=== PATIENT | male | born 1965 | race Caucasian/White ===

== ENCOUNTER 2019-10-23 10:50 | Day surgery (SDC) | payer OTHER ==
[2019-10-13 08:32] VITALS: BMI 23.7
[~2019-10-23 10:50] MED LIST: DEXAMETHASONE SOD PHOSPHATE 10 MG/ML 1 ML VIAL IV ONE; HEPARIN SODIUM,PORCINE 5,000 UNIT/ML 1 ML VIAL SQ ONE; LACTATED RINGERS 1,000 ML IV SCH; LIDOCAINE 1% 20 ML VIAL (10MG/ML) FOR IV START INTRADERMA PRN; METOCLOPRAMIDE 5 MG/ML 2 ML VIAL IVP PRN; ONDANSETRON 4 MG/2 ML VIAL IVP ONE
[2019-10-23 11:11] VITALS: RESP 16
[2019-10-23] MEDS ORDERED: KETOROLAC 30 MG/ML 1 ML VIAL IVP SCH (12:00)
[2019-10-23] MEDS ORDERED: BUPIVACAINE (PF) 0.25% 30 ML VIAL SQ ONE ×2 (12:18→14:30)
[2019-10-23] MEDS ORDERED: MIDAZOLAM 2 MG/2 ML VIAL ONE (13:46)
[2019-10-23] MEDS ORDERED: fentaNYL (PF) 50 MCG/ML 2 ML AMP ONE (13:46)
[2019-10-23] MEDS ORDERED: KETOROLAC 30 MG/ML 1 ML VIAL ONE (13:46)
[2019-10-23] MEDS ORDERED: ROCURONIUM BROMIDE 10 MG/ML 10 ML VIAL IV ONE (13:46)
[2019-10-23] MEDS ORDERED: LIDOCAINE 1% INJ 10MG/ML (20 ML MDV) ONE (13:46)
[2019-10-23] MEDS ORDERED: PROPOFOL 10 MG/ML 20 ML VIAL IV ONE (13:46)
[2019-10-23] MEDS ORDERED: NEOSTIGMINE 1 MG/ML 10 ML VIAL ONE (13:46)
[2019-10-23] MEDS ORDERED: GLYCOPYRROLATE 0.2 MG/ML 2 ML VIAL ONE (13:46)
[2019-10-23] MEDS ORDERED: LACTATED RINGERS 1,000 ML IV ONE (14:30)
--- NOTE | 2019-10-23 14:48 | P.OP ---
Date of Procedure: 10/23/19 Preoperative Diagnosis: Umbilical hernia Postoperative Diagnosis: Same Procedure(s) Performed: Open umbilical hernia repair with mesh Anesthesia: JUNIE Surgeon: Giles Field Estimated Blood Loss (ml): 2 Condition: stable Disposition: PACU Description of Procedure: Patient is brought to the operative suite remained in supine position when general endotracheal anesthesia per Department of anesthesia he was prepped and draped in usual sterile fashion timeout was performed correct patient correct procedure correct site was verified. A curvilinear infraumbilical incision was made carried down to the fascia the umbilicus was bluntly encircled and the umbilical stalk was dissected free of the hernia sac the hernia was reduced. Hernia was noted to be approximately 1.5 cm a small ventral ex mesh was placed. The defect was closed incorporating the mesh using 0 Ethibond suture in an interrupted fashion. The iliacus was then tacked back down to the fascia using 3-0 Vicryl. The wound was then closed with 30 subdermal Vicryl sutures followed by running 4-0 subcuticular suture sterile dressing was applied patient tolerated the procedure well there are no apparent complications Plan - Discharge Summary Discharge Rx Participant: Yes New Discharge Prescriptions: No Action No Known Home Medications Discharge Medication List No Known Home Medications 10/13/19 [History]
[2019-10-23 14:53] VITALS: TEMP 96.9
[2019-10-23] MEDS: HYDROmorphone 0.5 MG/0.5 ML SYRINGE IVP PRN ×4 (14:57→15:17)
[2019-10-23] MEDS ORDERED: ONDANSETRON 4 MG/2 ML VIAL IVP ONE (15:25)
[2019-10-23] MEDS ORDERED: HYDROcodone/APAP 5-325MG 1 EACH TAB PO ONE (15:57)
[2019-10-23 16:14] VITALS: BP 114/72; PULSE 49
== END 2019-10-23 16:34 | disposition home or self-care (01) ==
LOC: OR 10:50
PROVIDERS: ATTEND Student in an Organized Health Care Education/Training Program
DX: K42.9 Umbilical hernia without obstruction or gangrene (principal); Z88.0 Allergy status to penicillin; Z88.5 Allergy status to narcotic agent; Z90.49 Acquired absence of other specified parts of digestive tract; Z98.890 Other specified postprocedural states
CPT/HCPCS: 49585; C1781; J2250; J1644; J1100; J2710; J0690; J2405; J2001; J3010; J1885; J2704; J1170; 88302

== ENCOUNTER → 2020-03-19 | Outpatient (CLI) | payer OTHER ==
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
== END | disposition home or self-care (01) ==
LOC: RADUSWWP 11:06
PROVIDERS: ATTEND Physician Assistant
DX: N26.1 Atrophy of kidney (terminal) (principal)
CPT/HCPCS: 76700

== ENCOUNTER 2021-09-13 09:30 | Day surgery (SDC) | payer OTHER ==
[2021-09-09 12:00] VITALS: BMI 24.7
[~2021-09-13 09:30] MED LIST changes: -DEXAMETHASONE SOD PHOSPHATE 10 MG/ML 1 ML VIAL IV ONE; -HEPARIN SODIUM,PORCINE 5,000 UNIT/ML 1 ML VIAL SQ ONE; +LIDOCAINE 1% (10MG/ML) FOR IV START INTRADERMA PRN; -LIDOCAINE 1% 20 ML VIAL (10MG/ML) FOR IV START INTRADERMA PRN; -METOCLOPRAMIDE 5 MG/ML 2 ML VIAL IVP PRN; -ONDANSETRON 4 MG/2 ML VIAL IVP ONE
[2021-09-13 10:19] VITALS: TEMP 97.4
[2021-09-13] MEDS ORDERED: LIDOCAINE 1% INJ 10MG/ML (20 ML MDV) ONE (11:07)
[2021-09-13] MEDS ORDERED: PROPOFOL 10 MG/ML 20 ML VIAL IV ONE (11:07)
--- NOTE | 2021-09-13 11:23 | P.PCN ---
Date of Procedure: 09/13/21 Procedure(s) Performed: BRIEF HISTORY: Patient is a 5-year-old, pleasant, .white male scheduled for an upper endoscopy as a part of evaluation of epigastric pain for more than 10 years duration. He was diagnosed with gastroesophageal reflux disease and was an Prevacid 30 mg daily without any help. Recently was changed to omeprazole 20 mg daily and is doing much better. He scheduled for an upper endoscopy to rule out complicated reflux disease. PROCEDURE PERFORMED: Esophagogastroduodenoscopy with biopsy . PREOPERATIVE DIAGNOSIS: long-standing history of GERD IV sedation per anesthesia. PROCEDURE: After informed consent was obtained, the patient was brought into the endoscopy unit. IV sedation was administered by Anesthesia under continuous monitoring. Initially the Olympus GIF-140 video endoscope was inserted into the mouth. Esophagus intubated without any difficulty. It was gradually advanced into the stomach and duodenum and carefully examined. The bulb had mild duodenitisand the second part of the duodenum appeared normal. The scope at this time was withdrawn to the stomach, adequately insufflated with air, and upon careful examination, mucosa of the antrum, had mild gastritis and biopsies were done from this area. Thebody, cardia and the fundus appeared normal. The scope was then withdrawn into the esophagus. The GE junction was located at 41 cm from the incisors. The esophagus appeared normal. There were no erosions or ulcerations seen, biopsies were done from the distal esophagus and the patient tolerated the procedure well. IMPRESSION: 1. Mild antral gastritis and duodenitis 2. Normal-appearing esophagus with no evidence of esophagitis or Arshad's esophagus RECOMMENDATIONS: The findings of this examination were discussed with the patient as well as his family. He was advised to follow with the biopsy results. In the meantime he will continue with omeprazole 20 mg daily and continue to follow antireflux measures.
[2021-09-13 11:42] VITALS: RESP 16
[2021-09-13 11:43] VITALS: BP 114/76; PULSE 61
== END 2021-09-13 12:10 | disposition home or self-care (01) ==
LOC: ORWHC2ENDO 09:30
PROVIDERS: ATTEND Internal Medicine Gastroenterology
DX: K29.50 Unspecified chronic gastritis without bleeding (principal); K21.00 Gastro-esophageal reflux disease with esophagitis, without bleeding; K29.80 Duodenitis without bleeding; Z79.899 Other long term (current) drug therapy
CPT/HCPCS: 88305; 43239; J2001; J2704

== ENCOUNTER → 2021-10-11 | Outpatient (CLI) | payer OTHER ==
--- NOTE | 2021-10-11 08:49 | US ---
EXAMINATION TYPE: US kidneys/renal and bladder DATE OF EXAM: 10/11/2021 COMPARISON: US 03/19/20 CLINICAL HISTORY: R10.9 Abdominal pain. Recurrent UTIs EXAM MEASUREMENTS: Right Kidney: 10.0 x 4.9 x 3.8 cm Left Kidney: 13.8 x 7.3 x 6.2 cm Post Void Residual Volume: 12.3 mL Right Kidney: No hydronephrosis or masses seen Left Kidney: No hydronephrosis or masses seen Bladder: Difficult to exclude some debris, low-level echoes within the urinary bladder on the static images were possibly artifact Bilateral Jets seen: Yes Normal Post Void Residual: Yes There is no evidence for hydronephrosis at this point in time. No nephrolithiasis is seen. No fernanda s are identified. There is cortical thinning however, areas of cortical loss in the right kidney, le ft kidney shows normal cortical medullary differentiation. The urinary bladder is anechoic. Bilater al ureteral jets are seen. IMPRESSION: Right kidney again shows areas of cortical thinning, volume loss, questionable debris within the urin shellie bladder may be technical, correlate with urinalysis
== END | disposition home or self-care (01) ==
LOC: RADUSWWP 07:46
PROVIDERS: ATTEND Urology
DX: R10.9 Unspecified abdominal pain (principal)
CPT/HCPCS: 76770

== ENCOUNTER → 2021-10-19 | Outpatient (CLI) | payer OTHER ==
--- NOTE | 2021-10-19 11:58 | CONS ---
CONSULTATION DATE OF SERVICE: 10/19/2021 This 55-year-old gentleman has been evaluated in [facility] for possible obstructive sleep apnea-hypopnea syndrome. HISTORY OF PRESENT ILLNESS/SLEEP-WAKE EVALUATION: Patient's usual sleep schedule on weekdays is from 1 a.m. until 6 a.m. and on weekends from around 11 p.m. until 6 a.m. He does have problems with falling asleep, although no TV in bedroom. He usually sleeps only on the back position. He cannot turn because of back and neck problems. According to his , he has very loud snoring and witnessed episodes of stopped breathing during sleep. The patient wakes up from sleep more than 4 times with episodes of choking, gasping for air, dry mouth, panic attacks, palpitations, heartburn. He has up to 4 episodes of nocturia during sleep. Positive history of panic attacks and significant amount of movements during the night; possibly [id number] movements. Positive history of sleeptalking. No history of hypnagogic hallucinations, sleep paralysis or cataplexy. In the morning the patient wakes up tired, has difficulties paying attention, falling asleep during the day, worries about his sleep, has problems with memory, concentration, irritability, depression, anxiety and sexual dysfunction. Kodak Sleepiness Scale is in very high range at 20. The patient may take several naps during the day. He does not feel refreshed after naps. PAST MEDICAL HISTORY: Positive for back problems, neck problems, sinus problems, headaches, acid reflux. Patient is under evaluation for possible posttraumatic stress disorder. PAST SURGICAL HISTORY: Appendectomy, left shoulder surgery, right knee surgery, surgery for umbilical hernia. SOCIAL HISTORY: Negative for smoking. Alcohol consumption occasional. MEDICATIONS: Advil, Motrin. REVIEW OF SYSTEMS: Multiple awakenings from sleep. Pain in the back and neck. Snoring. No fevers. No double vision. No recent chest pain. No shortness of breath. No abdominal pain. No bleeding episodes. No blood in the urine. No seizure episodes. FAMILY HISTORY: Hypertension. PHYSICAL EXAMINATION: GENERAL: Pleasant gentleman without distress. VITAL SIGNS: BP 150/74, HR 74, RR 16, height 6 feet 3-1/2 inches, weight 206.6 pounds, body mass index 25.4, temperature 97.7, oxygen saturation at room air 98%. HEENT: PERRJAVIER, EOMI, evaluation of oropharynx showed tongue protrudes midline. Small oropharyngeal airspace. Moderately low position of soft palate, Mallampati II to III, but extremely wide pillars. NECK: Supple, no JVD. Thyroid is not palpable. Neck measures 16 inches in circumference. LUNGS: Clear to percussion and to auscultation. Good air exchange. No wheezing or rhonchi. HEART: S1, S2 regular. No murmurs, gallops, or rubs. ABDOMEN: Soft and nontender. Bowel sounds are present. No organomegaly appreciated. EXTREMITIES: No clubbing or cyanosis. FISHER TROT LINE: Awake, alert, and oriented X3. Cranial nerves 2 to 7 intact. There is no fasciculation or atrophy. noted. No focal deficits observed. IMPRESSION: 1. Loud snoring, witnessed episodes of stopped breathing during sleep, small oropharyngeal airspace, significant excessive daytime sleepiness, multiple awakenings from sleep; obstructive sleep apnea-hypopnea syndrome. 2. Sleeptalking. 3. Restless leg symptoms; possibly periodic limb movements. 4. History of episodes of [id number] movements; questionable REM sleep behavioral disorder. 5. Significant excessive daytime sleepiness by Kodak Sleepiness Scale of 20, dictating necessity of including narcolepsy and idiopathic hypersomnia in differential diagnosis. 6. History of sinus problems. 7. Patient is under evaluation for possible posttraumatic stress disorder. 8. History of acid reflux. 9. Back problems. 10.Neck problems. 11.Status post right knee surgery. 12.Hypertension in the office today. 13.Status post umbilical hernia surgery. 14.Status post appendectomy. PLAN: 1. Polysomnography for evaluation of patient's breathing during sleep. 2. CPAP/BiPAP titration if sleep study confirms obstructive sleep apnea-hypopnea syndrome. 3. Preferable position during sleep on the side. 4. No driving if patient feels any sleepiness. 5. I will see patient for follow up visit to explain results of testing and following plan. Thank you very much for referring this patient for consultation. Sincerely, Jayme Sen MD, PhD, FAASM Diplomat of [employer] Sleep Medicine Board of [employer] [facility] [place] MMODL / IJN: [id number] /
== END | disposition home or self-care (01) ==
LOC: SLEEP 09:56
PROVIDERS: ATTEND Internal Medicine
DX: G47.33 Obstructive sleep apnea (adult) (pediatric) (principal); G25.81 Restless legs syndrome; Z87.09 Personal history of other diseases of the respiratory system; Z87.19 Personal history of other diseases of the digestive system; Z90.49 Acquired absence of other specified parts of digestive tract; Z98.890 Other specified postprocedural states
CPT/HCPCS: 99211